=== PATIENT | female | born 1960 | race Two or more races ===

== ENCOUNTER 2019-09-15 04:29 | Inpatient (IN) | payer BC, OTHER ==
[~2019-09-15] VITALS: Ht 162.6 cm; Wt 93.0 kg
[2019-09-15] MEDS ORDERED: AZITHROMYCIN 500MG/ 250ML 250 ML IV ONE (06:00)
[2019-09-15] MEDS ORDERED: ENOXAPARIN SOD 80 MG/0.8ML SYRINGE SC ONE (06:00)
[2019-09-15 06:24] LABS: Basophils # (auto) 0 10 ^3/uL (0-0.2); Basophils % (auto) 0.2 % (0.0-2.0); Eosinophils # (auto) 0 10 ^3/uL (0-0.8); Eosinophils % (auto) 0.2 % (0.0-7.0); Hematocrit 44.4 % (36.0-46.0); Hemoglobin 14.7 g/dL (12.2-16.2); Lymphocytes # (auto) 0.9 10 ^3/uL (0.4-5.4); Lymphocytes % (auto) 19.8 % (10.0-50.0); Mean Corpuscular Hemoglobin 30.5 pg (28.0-32.0); Mean Corpuscular Hgb Conc. 33.1 g/dL (32.0-36.0); Mean Corpuscular Volume 92.3 fL (80.0-100.0); Monocytes # (auto) 0.3 10 ^3/uL (0-1.3); Monocytes % (auto) 7.7 % (0.0-12.0); Neutrophils # (auto) 3.2 10 ^3/uL (1.6-8.6); Neutrophils % (auto) 72.1 % (37.0-80.0); Nucleated Red Blood Cells % 0.3 %; Platelet Count (auto) 201 10^3/uL (140-450); Red Blood Cells 4.81 10^6/uL (4.0-5.20); Red Cell Distribution Width 15.1 % (11.8-14.3); White Blood Cell 4.5 10^3/uL (4.4-10.8)
[2019-09-15 06:35] LABS: INR 0.97 (0.9-1.15); Partial Thromboplastin Time 35.4 sec (23.64-32.05)
[2019-09-15 06:49] LABS: Chloride 98 mmol/L (98-107); Sodium 133 mmol/L (136-145)
[2019-09-15 07:15] LABS: Alanine Aminotransferase 21 U/L (13-56); Albumin 3.3 g/dL (3.4-5.0); Alkaline Phosphatase 120 U/L (45-117); Anion Gap 7 (5-15); Aspartate Aminotransferase 25 U/L (15-37); BUN/Creatinine Ratio 12.5; Bilirubin, Total 0.3 mg/dL (0.2-1.0); Blood Urea Nitrogen 8 mg/dL (7-18); Calcium 8.9 mg/dL (8.5-10.1); Carbon Dioxide 28 mmol/L (21-32); GFR African American 122 mL/min; GFR Non-African American 101 mL/min; Glucose 86 mg/dL (74-106); Magnesium 2.5 mg/dL (1.6-2.6); Total Protein 8.4 g/dL (6.4-8.2)
[2019-09-15] MEDS ORDERED: MORPHINE SULF INJ 2 MG/ML SYRINGE 1ML IV PRN ×2 (10:00→10:30)
[2019-09-15] MEDS ORDERED: NITROGLYCERIN 0.4 MG SL TAB SL PRN (10:00)
[2019-09-15] MEDS ORDERED: SODIUM CHLORIDE 0.9% 1,000 ML IV SCH (10:27)
[2019-09-15] MEDS ORDERED: ACETAMINOPHEN 500 MG TAB PO PRN ×2 (10:30)
[2019-09-15] MEDS ORDERED: ALBUTEROL SULF 2.5 MG/0.5ML(0.5%) NEB SOLN NEB PRN (10:30)
[2019-09-15] MEDS ORDERED: TEMAZEPAM 15 MG CAP PO PRN (10:30)
[2019-09-15] MEDS ORDERED: PROMETHAZINE HCL 25 MG/ML 1ML IV PRN (10:30)
[2019-09-15] MEDS ORDERED: BUDESONIDE (INHALATION) 0.5 MG/2 ML NEB NEB ONE (10:30)
[2019-09-15] MEDS ORDERED: traMADol HCL 50 MG TAB PO PRN (10:30)
[2019-09-15] MEDS: levoFLOXacin 500MG 100 ML IV SCH (10:57)
[2019-09-15] MEDS ORDERED: BENZ200C64 PO (12:26)
[2019-09-15] MEDS ORDERED: AZEL0.1S2 (12:26)
[2019-09-15] MEDS ORDERED: IPRA0.03 (12:26)
[2019-09-15 14:00] VITALS: BP 133/70
[2019-09-15] MEDS: CLINDAMYCIN 600MG IV 50 ML IV SCH ×2 (14:00→21:49)
[2019-09-15 14:18] VITALS: BP 133/70
[2019-09-15] MEDS: ALBUTEROL SULF HFA 90MCG INH 200DOSE IN SCH ×2 (14:56→22:00)
[2019-09-15 15:05] VITALS: BP 133/70
[2019-09-15 17:00] VITALS: BP 123/89
[2019-09-15 20:00] VITALS: BP 131/88
[2019-09-15] MEDS: ENOXAPARIN SOD 100 MG/1 ML SYRINGE SC SCH (21:49)
[2019-09-15] MEDS: DexAMETHasone SOD PHOS 4 MG/1ML SDV INJ IV SCH (21:49)
[2019-09-15 22:00] VITALS: BP 131/88
[2019-09-15] MEDS ORDERED: BUDESONIDE (INHALATION) 0.5 MG/2 ML NEB NEB SCH (22:00)
[2019-09-16 05:00] VITALS: BP 142/83
[2019-09-16] MEDS: ALBUTEROL SULF HFA 90MCG INH 200DOSE IN SCH ×2 (05:32→15:33)
[2019-09-16] MEDS: CLINDAMYCIN 600MG IV 50 ML IV SCH (05:32)
[2019-09-16 07:31] LABS: Albumin 2.9 g/dL (3.4-5.0); Calcium 9.1 mg/dL (8.5-10.1); Potassium 3.9 mmol/L (3.5-5.1)
[2019-09-16 07:33] LABS: BUN/Creatinine Ratio 16.7
[2019-09-16 07:36] LABS: Bilirubin, Total 0.2 mg/dL (0.2-1.0); Total Protein 7.6 g/dL (6.4-8.2)
[2019-09-16] MEDS: levoFLOXacin 500MG 100 ML IV SCH (08:32)
[2019-09-16] MEDS: DexAMETHasone SOD PHOS 4 MG/1ML SDV INJ IV SCH (08:32)
[2019-09-16] MEDS: ENOXAPARIN SOD 100 MG/1 ML SYRINGE SC SCH (08:33)
[2019-09-16 09:05] LABS: Hematocrit 42.3 % (36.0-46.0); Mean Corpuscular Hemoglobin 30.4 pg (28.0-32.0); Mean Corpuscular Hgb Conc. 33.1 g/dL (32.0-36.0); Mean Corpuscular Volume 91.8 fL (80.0-100.0); Platelet Count (auto) 244 10^3/uL (140-450); Red Blood Cells 4.61 10^6/uL (4.0-5.20); Red Cell Distribution Width 15.4 % (11.8-14.3)
[2019-09-16 09:08] LABS: White Blood Cell 1.4 10^3/uL (4.4-10.8)
[2019-09-16 09:10] LABS: Band Neutrophils % (manual) 0; Basophils % (manual) 0 (0.0-2.0); Blast Cells 0; Eosinophils % (manual) 0 (0-7); Metamyelocytes % 0; Myelocytes % 0; Promyelocytes % 0
[2019-09-16 09:28] VITALS: BP 128/62
[2019-09-16 09:30] LABS: Lymphocytes % (manual) 18 (10.0-50.0); Monocytes % (manual) 5 (0-12); Reactive Lymphocytes 1
[2019-09-16] MEDS ORDERED: CHOLECALCIFEROL (VITD3) 1,000IU=25mCg TAB PO SCH (10:00)
[2019-09-16] MEDS ORDERED: ZINC SULFATE 220mg CAP or TAB PO SCH (10:00)
[2019-09-16] MEDS ORDERED: ASCORBIC ACID 1,000 MG TAB PO SCH (10:00)
[2019-09-16] MEDS ORDERED: IOHEXOL 350 MG/ML 100ML IJ ONE (12:45)
[2019-09-16 13:30] VITALS: BP 131/76
[2019-09-16] MEDS ORDERED: diphenhdrAMINE HCL 50 MG/1 ML VL IV ONE (13:30)
[2019-09-16] MEDS ORDERED: ACETAMINOPHEN 500 MG TAB PO PRN (13:45)
[2019-09-16] MEDS ORDERED: FILGRASTIM (TBO) 300 MCG/0.5 ML SYRG SC ONE ×2 (15:00→15:30)
[2019-09-16 16:30] VITALS: BP 136/83
[2019-09-16] MEDS ORDERED: ASCO10003 PO (16:32)
[2019-09-16] MEDS ORDERED: CHOL1000 PO (16:32)
[2019-09-16] MEDS ORDERED: AZIT250T9 PO (16:32)
[2019-09-16] MEDS ORDERED: DEX4T PO (16:32)
[2019-09-16] MEDS ORDERED: ALBUAER3 IN (16:32)
[2019-09-16] MEDS ORDERED: ZINC220T6 PO (16:32)
[2019-09-17] MEDS ORDERED: AZITHROMYCIN 250 MG TAB PO SCH (10:00)
[2019-09-17] MEDS ORDERED: ENOXAPARIN SOD 40 MG/0.4 ML SYRINGE SC SCH (10:00)
== END 2019-09-16 17:45 | disposition home or self-care (01) | DRG 177 ==
LOC: ER 04:29 → TELE 04:30 → TELE-E-ADS 14:03
PROVIDERS: ADMIT Internal Medicine; ATTEND Internal Medicine
DX: U07.1 COVID-19 (principal); J12.89 Other viral pneumonia; E87.1 Hypo-osmolality and hyponatremia; D70.9 Neutropenia, unspecified; Z90.49 Acquired absence of other specified parts of digestive tract
CPT/HCPCS: 36415; 36600; 71045; 71275; 80053; 82728; 82805; 83735; 83880; 84484; 85007; 85025; 85027; 85379; 85610; 85730; 86141; 87040; 87070; 87804; 87880; 93005; 93970; 94640; 96365; 96366; 96372; G0378; J1100; J1447; J1956; J3490

== ENCOUNTER 2019-09-23 19:30 | Inpatient (IN) | payer BC ==
[~2019-09-23] VITALS: Ht 162.6 cm; Wt 97.0 kg
[~2019-09-23 19:30] MED LIST: ALBUAER3 IN; ASCO10003 PO; AZEL0.1S2; AZIT250T9 PO; BENZ200C64 PO; CHOL1000 PO; DEX4T PO; IPRA0.03; ZINC220T6 PO
[2019-09-23 21:14] LABS: Basophils # (auto) 0 10 ^3/uL (0-0.2); Basophils % (auto) 0.3 % (0.0-2.0); Eosinophils # (auto) 0 10 ^3/uL (0-0.8); Hematocrit 38.7 % (36.0-46.0); Hemoglobin 12.7 g/dL (12.2-16.2); Lymphocytes # (auto) 1.1 10 ^3/uL (0.4-5.4); Lymphocytes % (auto) 15.2 % (10.0-50.0); Mean Corpuscular Hemoglobin 30.1 pg (28.0-32.0); Mean Corpuscular Hgb Conc. 32.8 g/dL (32.0-36.0); Mean Corpuscular Volume 91.8 fL (80.0-100.0); Monocytes # (auto) 0.8 10 ^3/uL (0-1.3); Monocytes % (auto) 11.1 % (0.0-12.0); Neutrophils # (auto) 5.3 10 ^3/uL (1.6-8.6); Neutrophils % (auto) 73.4 % (37.0-80.0); Platelet Count (auto) 420 10^3/uL (140-450); Red Blood Cells 4.21 10^6/uL (4.0-5.20); Red Cell Distribution Width 15.4 % (11.8-14.3); White Blood Cell 7.2 10^3/uL (4.4-10.8)
[2019-09-23 21:20] LABS: Urine Bacteria NONE SEEN /hpf (None Seen); Urine Blood Negative /uL (Negative); Urine Mucus FEW (None Seen); Urine Specific Gravity 1.026 (1.001-1.035); Urine WBC 1 /hpf (0 - 5)
[2019-09-23 21:35] LABS: Albumin 2.9 g/dL (3.4-5.0); Calcium 7.5 mg/dL (8.5-10.1); Potassium 3.3 mmol/L (3.5-5.1)
[2019-09-23 21:38] LABS: Bilirubin, Total 0.4 mg/dL (0.2-1.0); Total Protein 6.2 g/dL (6.4-8.2)
[2019-09-23 21:45] LABS: Lactic Acid w/Reflex 2.4 mmol/L (0.4-2.0)
[2019-09-23] MEDS ORDERED: VANCOMYCIN 1GM/250ML 250 ML IV ONE (23:15)
[2019-09-23] MEDS ORDERED: SODIUM CHLORIDE 0.9% 2,700 ML IV ONE (23:15)
[2019-09-23] MEDS ORDERED: PIPERACILLIN-TAZOB 3.375GM 100 ML IV ONE (23:15)
[2019-09-24] MEDS ORDERED: MORPHINE SULFATE 4 MG/ML SYR/VIAL IV ONE (03:00)
[2019-09-24] MEDS ORDERED: ONDANSETRON HCL 4 MG/2 ML VIAL IV ONE (03:00)
[2019-09-24] MEDS: SODIUM CHLORIDE 0.9% 1,000 ML IV SCH (07:42)
[2019-09-24] MEDS ORDERED: DOCUSATE SOD 100 MG CAP PO PRN (07:45)
[2019-09-24] MEDS ORDERED: NITROGLYCERIN 0.4 MG SL TAB SL PRN (07:45)
[2019-09-24] MEDS ORDERED: LORazepam 0.5 MG TAB PO PRN (07:45)
[2019-09-24] MEDS ORDERED: ACETAMINOPHEN 500 MG TAB PO PRN (07:45)
[2019-09-24] MEDS ORDERED: IOHEXOL 300 MG/ML 100ML BOTTLE IJ ONE (08:10)
[2019-09-24] MEDS: CHOLECALCIFEROL (VITD3) 1,000UNIT=25mCg TAB PO SCH (08:21)
[2019-09-24] MEDS: DOXYCYCLINE 100 MG TAB/CAP PO SCH ×2 (08:21→21:51)
[2019-09-24] MEDS: ENOXAPARIN SOD 40 MG/0.4 ML SYRINGE SC SCH (08:21)
[2019-09-24 08:31] LABS: Basophils # (auto) 0.1 10 ^3/uL (0-0.2); Basophils % (auto) 0.9 % (0.0-2.0); Eosinophils # (auto) 0 10 ^3/uL (0-0.8); Eosinophils % (auto) 0.6 % (0.0-7.0); Hematocrit 38.3 % (36.0-46.0); Hemoglobin 12.3 g/dL (12.2-16.2); Lymphocytes % (auto) 28.7 % (10.0-50.0); Mean Corpuscular Hemoglobin 30.2 pg (28.0-32.0); Mean Corpuscular Hgb Conc. 32.1 g/dL (32.0-36.0); Monocytes # (auto) 0.6 10 ^3/uL (0-1.3); Neutrophils # (auto) 4.3 10 ^3/uL (1.6-8.6); Neutrophils % (auto) 60.8 % (37.0-80.0); Nucleated Red Blood Cells % 0.1 %; Platelet Count (auto) 373 10^3/uL (140-450); Red Blood Cells 4.08 10^6/uL (4.0-5.20); Red Cell Distribution Width 15.9 % (11.8-14.3)
[2019-09-24 08:46] LABS: BUN/Creatinine Ratio 30.6; Calcium 7.8 mg/dL (8.5-10.1); Potassium 3.7 mmol/L (3.5-5.1)
[2019-09-24] MEDS: MORPHINE SULF INJ 2 MG/ML SYRINGE 1ML IV PRN ×2 (09:41→16:15)
[2019-09-24 09:55] VITALS: BP 133/77
[2019-09-24] MEDS ORDERED: ZINC SULFATE 220mg CAP or TAB PO SCH (10:00)
[2019-09-24] MEDS ORDERED: ASCORBIC ACID 1,000 MG TAB PO SCH (10:00)
--- NOTE | 2019-09-24 10:05 | NUR ---
MS admit from [facility] admitted to tele/MS after SBAR received. Patient oriented to RUDDY RAMOS, RN primary RN, unit, room, bed, and unit policies regarding patient care and visiting hours. Patient weighed by bedscale and encouraged to call if they need something. All questions and concerns addressed, patient verbalized understanding. Note:
[2019-09-24 10:28] VITALS: BP 131/77
[2019-09-24 10:40] VITALS: BP 131/77
[2019-09-24] MEDS: HYDROcodone-ACET 5/325MG TAB PO PRN ×2 (12:29→20:47)
[2019-09-24 13:00] VITALS: BP 118/67
[2019-09-24] MEDS: ALBUTEROL SULF HFA 90MCG INH 200DOSE IN SCH ×2 (13:47→22:00)
--- NOTE | 2019-09-24 13:47 | NUR ---
Respiratory note: MDI ADMINISTERED BY RT. TOLERATED WELL. HR 73, RR 18, SPO2 97% ON RA, BS CLEAR AND DIMINISHED.
[2019-09-24 17:00] VITALS: BP 110/58
--- NOTE | 2019-09-24 19:00 | NUR ---
CALLED CHARGE TO INFORM PATIENT IS NEGATIVE FOR CORONAVIRUS.
--- NOTE | 2019-09-24 19:36 | NUR ---
REPORT GIVEN TO YURY MIR.
--- NOTE | 2019-09-24 20:00 | NUR ---
Patient Transferred to Room 220A From Covid-19 Unit Patient transferred to room 220A from covid-19 unit due to covid-19 test resulting negative. Patient transferred with all personal belongings via wheelchair. No sign/symptoms of distress noted upon transfer.
--- NOTE | 2019-09-24 20:05 | NUR ---
Opening Shift Note Received report from Nicholas COTTON. Assumed care of patient, awake and alert. No S/S of distress/SOB or pain. Instructed on POC and to call for assist PRN, will continue to monitor for changes Q1hr and PRN.
[2019-09-24 22:00] VITALS: BP 136/73
[2019-09-25] MEDS: SODIUM CHLORIDE 0.9% 1,000 ML IV SCH ×2 (00:30→17:19)
[2019-09-25 05:00] VITALS: BP_SYST 133; BP_SYST 137; BP_DIAS 101; BP_DIAS 75
[2019-09-25] MEDS: MORPHINE SULF INJ 2 MG/ML SYRINGE 1ML IV PRN ×2 (05:05→09:18)
[2019-09-25] MEDS: ONDANSETRON HCL 4 MG/2 ML VIAL IV PRN ×3 (05:45→17:19)
[2019-09-25 06:09] LABS: Basophils # (auto) 0 10 ^3/uL (0-0.2); Basophils % (auto) 0.5 % (0.0-2.0); Eosinophils # (auto) 0.1 10 ^3/uL (0-0.8); Hematocrit 41.6 % (36.0-46.0); Hemoglobin 13.6 g/dL (12.2-16.2); Lymphocytes # (auto) 1.9 10 ^3/uL (0.4-5.4); Lymphocytes % (auto) 37.8 % (10.0-50.0); Mean Corpuscular Hemoglobin 30.5 pg (28.0-32.0); Mean Corpuscular Hgb Conc. 32.6 g/dL (32.0-36.0); Mean Corpuscular Volume 93.5 fL (80.0-100.0); Monocytes # (auto) 0.4 10 ^3/uL (0-1.3); Monocytes % (auto) 7.4 % (0.0-12.0); Neutrophils # (auto) 2.7 10 ^3/uL (1.6-8.6); Neutrophils % (auto) 53.3 % (37.0-80.0); Nucleated Red Blood Cells % 0.2 %; Platelet Count (auto) 417 10^3/uL (140-450); Red Blood Cells 4.45 10^6/uL (4.0-5.20); Red Cell Distribution Width 16.4 % (11.8-14.3); White Blood Cell 5.1 10^3/uL (4.4-10.8)
[2019-09-25 06:27] LABS: Calcium 8.7 mg/dL (8.5-10.1); Potassium 3.8 mmol/L (3.5-5.1)
[2019-09-25] MEDS: HYDROcodone-ACET 5/325MG TAB PO PRN (06:27)
[2019-09-25 06:32] LABS: Bilirubin, Total 0.4 mg/dL (0.2-1.0); Total Protein 6.8 g/dL (6.4-8.2)
--- NOTE | 2019-09-25 07:23 | NUR ---
OPENING SHIFT NOTE Assumed care of patient from shift manager RN. Patient is alert and oriented x4, patient complaining of abdominal pain 4/10, patient has been medicated as ordered by shift manager. Patient was offered hot packs and repositioning. No other signs of distress noted. She was updated on the plan of care and verbalized understanding. Bed is locked, in the lowest position, side rails up x2 and call light is in reach. She was encouraged to call for assistance as needed.
[2019-09-25 08:00] VITALS: BP 128/73
--- NOTE | 2019-09-25 08:51 | NUR ---
GIOVANI AT BEDSIDE Updated on the patient status, wounds assessed. Plan of care discussed with the patient. Per MD patient will be scheduled for a skin graft on the left lateral khalil. No new orders received. Addendum: 09/25/19 at 0921 by BRIAN MONTOYA RN wrong patient.
[2019-09-25] MEDS: CHOLECALCIFEROL (VITD3) 1,000UNIT=25mCg TAB PO SCH (09:17)
[2019-09-25] MEDS: DOXYCYCLINE 100 MG TAB/CAP PO SCH (09:17)
[2019-09-25] MEDS: ENOXAPARIN SOD 40 MG/0.4 ML SYRINGE SC SCH (09:18)
--- NOTE | 2019-09-25 10:24 | NUR ---
Joie ESCOBAR PAGED Regarding patient abdominal pain 12/16 after administration of ordered pain medication. Message left, awaiting call back.
--- NOTE | 2019-09-25 10:41 | NUR ---
CALL FROM Sabrina ESCOBAR He was updated on the patient status and abdominal pain. Plan of care was discussed and this RN verbalized understanding. New orders will be input by .
[2019-09-25] MEDS ORDERED: CALCIUM CARB 500 MG CHEW TAB PO ONE (10:45)
[2019-09-25] MEDS ORDERED: MORPHINE SULF INJ 2 MG/ML SYRINGE 1ML IV PRN (10:45)
[2019-09-25] MEDS ORDERED: PANTOPRAZOLE 40 MG TAB PO ONE (10:45)
[2019-09-25] MEDS ORDERED: HYDROcodone-ACET 5/325MG TAB PO PRN (10:45)
[2019-09-25 12:00] VITALS: BP 126/78
[2019-09-25 17:00] VITALS: BP 145/86
[2019-09-25] MEDS ORDERED: PANT40T PO (20:00)
[2019-09-25] MEDS ORDERED: DOX100T PO (20:00)
[2019-09-25 21:08] VITALS: BP 125/72
--- NOTE | 2019-09-25 22:08 | NUR ---
Discharge instructions given as ordered. Encourage to follow up with PMD as instructed. All questions and concerns addressed. Patient verbalized understanding. Medication reconciliation form completed and copy given to patient. IV removed with catheter intact, pressure dressing applied. Telemetry unit returned to ICU. Patient taken to vehicle via wheelchair with all personal belongings, accompanied by staff. No distress noted at time of departure.
[2019-09-26] MEDS ORDERED: PANTOPRAZOLE 40 MG TAB PO SCH (10:00)
== END 2019-09-25 22:10 | disposition home or self-care (01) | DRG 871 ==
LOC: EDBD 19:30 → ER 19:30 → TELE-E-ADS 19:31 → TELE-CENTR 09-24 20:05
PROVIDERS: ADMIT Hospitalist; ATTEND Hospitalist
DX: A41.9 Sepsis, unspecified organism (principal); J18.9 Pneumonia, unspecified organism; J98.11 Atelectasis; E87.6 Hypokalemia; K57.30 Diverticulosis of large intestine without perforation or abscess without bleeding; N28.1 Cyst of kidney, acquired; R16.0 Hepatomegaly, not elsewhere classified; K52.9 Noninfective gastroenteritis and colitis, unspecified; Z90.49 Acquired absence of other specified parts of digestive tract; Z03.818 Encounter for observation for suspected exposure to other biological agents ruled out
CPT/HCPCS: 36415; 71045; 74176; 80048; 80053; 81001; 82150; 83605; 83690; 83735; 83880; 85025; 87040; 87081; 93005; 94640; 96361; 96365; 96366; 96367; 96375; G0378; J2405; J2543

== ENCOUNTER 2024-01-30 19:00 | Emergency (ER) | payer BC ==
[~2024-01-30] VITALS: Ht 162.6 cm; Wt 86.3 kg
[~2024-01-30 19:00] MED LIST changes: -ASCO10003 PO; -AZEL0.1S2; -AZIT250T9 PO; -CHOL1000 PO; -DEX4T PO; +DOX100T PO; +PANT40T PO; -ZINC220T6 PO; +[UNRECOGNIZED DRUG - CODE]
[2024-01-30 19:08] VITALS: BP 161/85; PULSE 71; RESP 19; O2SAT 100
[2024-01-30] MEDS ORDERED: SODIUM CHLORIDE 0.9% 1,000 ML IVB ONE (19:15)
[2024-01-30] MEDS ORDERED: MORPHINE SULFATE 4 MG/ML SYR/VIAL IV ONE (19:15)
[2024-01-30] MEDS ORDERED: ONDANSETRON HCL 4 MG/2 ML VIAL IV ONE (19:15)
--- NOTE | 2024-01-30 19:24 | ED.PDOC ---
GI ASSESSMENT HPI Comments 63-year-old female who came to ER via EMS for abdominal pain. Patient does have history of cholecystectomy and gastric bypass. States shortly after having dinner, she started having cramping, constant, right upper quadrant pain, radiating to the back associated with nausea. Denies any vomiting or changes in bowel habits. Patient was given Zofran by paramedics while EN route to the ER. Chief Complaint: Abdominal pain Time Seen by MD: 19:23 Primary Care Provider: GERMAIN Reviewed Notes: Nurses Notes Allergies: Coded Allergies: NO KNOWN ALLERGIES (Unverified , 11/30/14) Home Meds Active Scripts Pantoprazole Sodium Sesquihydr (Pantoprazole Sodium) 40 Mg Tab, 40 MG PO DAILY, #30 TAB Prov:NANCY ESCOBAR MD 09/25/19 Doxycycline Monohydrate (Doxycycline Monohydrate) 100 Mg Tab, 100 MG PO BID, #20 TAB Prov:NANCY ESCOBAR MD 09/25/19 Albuterol Sulfate (VENTOLIN MDI) 90 Mcg Ih, 90 MCG IN TID, #1 INH 1 Refill Prov:NANCY ESCOBAR MD 09/16/19 Benzonatate (Benzonatate) 200 Mg Cap, 1 CAP PO TIDP PRN for FOR COUGH for 10 Days, #30 CAP Prov:Doyle09/15/19 Azelastine HCl (Azelastine Hydrochloride) 0.1 % Spr, 0.1 % NA BID for 30 Days, #30 SPR Prov:09/15/19 Ipratropium [place] (Ipratropium [place]) 0.03 % Spr, 0.03 % NA UD for 30 Days, #30 SPRAY Prov:Doyle09/15/19 Information Source: Patient Mode of Arrival: EMS Timing: Hours Duration: Since onset Prehospital treatment: None Quality: Aching, Cramping Vomitus: None Stool: Normal Severity: Moderate Recent: Possible spoiled food Recent Hx of: Abdominal Surgery Pain Location: RUQ Associated sign and symptoms: Nausea, Abdominal Pain Past Medical History PAST MEDICAL HISTORY: HTN, Denies Surgical History: Cholecystectomy, Surgical History (Other): Gastric bypass TANK SETTER History: No Pertinent TANK SETTER History Family History Family History: Reviewed,noncontributory to illness Social History Smoker: Non-Smoker Alcohol: Denies ETOH Use Drugs: Denies Drug Use Lives In: Home Constitutional: denies: chills, diaphoresis, fatigue, fever, malaise, sweats, weakness, others EENTM: denies: blurred vision, double vision, ear bleeding, ear discharge, ear drainage, ear pain, ear ringing, eye pain, eye redness, hearing loss, mouth pain, mouth swelling, nasal discharge, nose bleeding, nose congestion, nose pa in, photophobia, tearing, throat pain, throat swelling, voice changes, others Respiratory: denies: cough, hemoptysis, orthopnea, SOB at rest, shortness of breath, SOB with excertion, stridor, wheezing, others Cardiovascular: denies: chest pain, dizzy spells, diaphoresis, Dyspnea on exertion, edema, irregular heart beat, left arm pain, lightheadedness, palpitations, PND, syncope, others Gastrointestinal: reports: abdominal pain, nausea; denies: abdomen distended, blood streaked bowels, constipated, diarrhea, dysphagia, difficulty swallowing, hematemesis, melena, poor appetite, poor fluid intake, rectal bleeding, rectal pain, vomiting, others Genitourinary: denies: abnormal vagina bleeding, burning, dyspareunia, dysuria, flank pain, frequency, hematuria, incontinence, pain, , vagina discharge, urgency, others Neurological: denies: dizziness, fainting, headache, left sided numbness, left sided weakness, numbness, paresthesia, pre-existing deficit, right sided numbness, right sided weakness, seizure, speech problems, tingling, tremors, weakness, others Musculoskeletal: denies: back pain, gout, joint pain, joint swelling, muscle pain, muscle stiffness, neck pain, others Integumetry: denies: bruises, change in color, change in hair/nails, dryness, laceration, lesions, lumps, rash, wounds, others Allergic/Immunocompromised: denies: Difficulty Healing, Frequent Infections, Hives, Itching, others Hematologic/Lymphatic: denies: anemia, blood clots, easy bleeding, easy bruising, swollen glands, others Endocrine: denies: excessive hunger, excessive sweating, excessive thirst, excessive urination, flushing, intolerance to cold, intolerance to heat, unexplained weight gain, unexplained weight loss, others Psychiatric: denies: anxiety, bipolar disorder, depression, hopeless, panic disorder, schizophrenia, sleepless, suicidal, others Physical Exam General Appearance: No Apparent Distress, Normal HEENT: Normal ENT Inspection, Pharynx Normal, TMs Normal Neck: Full Range of Motion, Non-Tender, Normal, Normal Inspection Respiratory: Chest Non-Tender, Lungs Clear, No Accessory Muscle Use, No Respiratory Distress, Normal Breath Sounds Cardiovascular: No Edema, No JVD, No Murmur, No Gallop, Normal Peripheral Pulses, Regular Rate/Rhythm Breast Exam: Deferred Gastrointestinal: No Organomegaly, Non Tender, No Pulsatile Mass, Normal Bowel Sounds, Soft Genitalia: Deferred Pelvic: Deferred Rectal: Deferred Extremities: No calf tenderness, Normal capillary refill, Normal inspection, Normal range of motion, Non-tender, No pedal edema Musculoskeletal : Apperance: Normal Neurologic: Alert, court bailiff II-XII nml as Tested, No Motor Deficits, Normal Affect, Normal Mood, No Sensory Deficits Cerebellar Function: Normal Reflexes: Normal Skin: Dry, Normal Color, Warm Lymphatic: No Adenopathy Was a procedure done? Was a procedure done?: No GI differential Dx Differential Diagnosis: Bowel Obstruction, Diverticular disease, Gastritis/PUD, Gastroenteritis, Electrolyte Imbalance, Food Poisoning X-Ray, Labs, Meds, VS Vital Signs Date Time Temp Pulse Resp B/P (MAP) Pulse Ox O2 Delivery O2 Flow Rate FiO2 01/30/24 19:08 98.4 71 19 161/85 (110) 100 Lab Test 01/30/24 19:33 01/30/24 19:15 Range/Units White Blood Count 7.0 4.4-10.8 10^3/uL Red Blood Count 4.46 4.0-5.20 10^6/uL Hemoglobin 12.4 12.2-16.2 g/dL Hematocrit 38.6 36.0-46.0 % Mean Corpuscular Volume 86.7 80.0-100.0 fL Mean Corpuscular Hemoglobin 27.9 L 28.0-32.0 pg Mean Corpuscular Hemoglobin Concent 32.2 32.0-36.0 g/dL Red Cell Distribution Width 16.8 H 11.8-14.3 % Platelet Count 306 140-450 10^3/uL Mean Platelet Volume 8.1 6.9-10.8 fL Neutrophils (%) (Auto) 79.5 37.0-80.0 % Lymphocytes (%) (Auto) 16.3 10.0-50.0 % Monocytes (%) (Auto) 3.6 0.0-12.0 % Eosinophils (%) (Auto) 0.4 0.0-7.0 % Basophils (%) (Auto) 0.2 0.0-2.0 % Neutrophils # (Auto) 5.5 1.6-8.6 10 ^3/uL Lymphocytes # (Auto) 1.1 0.4-5.4 10 ^3/uL Monocytes # (Auto) 0.3 0-1.3 10 ^3/uL Eosinophils # (Auto) 0 0-0.8 10 ^3/uL Basophils # (Auto) 0 0-0.2 10 ^3/uL Nucleated Red Blood Cells 0.1 % Prothrombin Time 10.5 9.3-11.8 sec Prothrombin Time INR 0.99 0.9-1.15 Activated Partial Thromboplast Time 27.3 24.5-34.5 SEC Sodium Level 141 136-145 mmol/L Potassium Level 3.6 3.5-5.1 mmol/L Chloride Level 109 H 98-107 mmol/L Carbon Dioxide Level 22 20-31 mmol/L Anion Gap 10 5-15 Blood Urea Nitrogen 15 9-23 mg/dL Creatinine 0.60 0.550-1.02 mg/dL Glomerular Filtration Rate Calc 101 >90 mL/min BUN/Creatinine Ratio 25.0 H 10.0-20.0 Serum Glucose 139 H 74-106 mg/dL Calcium Level 9.5 8.7-10.4 mg/dL Total Bilirubin 0.5 0.2-1.0 mg/dL Aspartate Amino Transferase (AST) 13 13-40 U/L Alanine Aminotransferase (ALT) 13 7-40 U/L Alkaline Phosphatase 103 46-116 U/L Total Protein 7.3 5.7-8.2 g/dL Albumin 4.7 3.2-4.8 g/dL Lipase 49 12-53 U/L Urine Color Light-yellow Yellow Urine Clarity Clear Clear Urine pH 6.5 5.0-9.0 Urine Specific [place] 1.026 1.001-1.035 Urine Protein Negative Negative Urine Ketones 3+ H Negative Urine Blood Trace H Negative /uL Urine Nitrite Negative Negative Urine Bilirubin Negative Negative Urine Urobilinogen Normal Negative mg/dL Urine Leukocyte Esterase Negative Negative /uL Urine RBC 1 0 - 4 /hpf Urine WBC 1 0 - 5 /hpf Urine Squamous Epithelial Cells Few <5 /hpf Urine Bacteria None seen None Seen /hpf Urine Glucose Normal Normal mg/dL Time of 1ST Reevaluation: 19:20 Reevaluation 1ST: Unchanged Time of 2ND Reevaluation: 04:32 (Patient eloped) Patient Education/Counseling: Diagnosis, Treatment Family Education/Counseling: No Family Present Departure 1 Departure Time of Disposition: 04:32 Impression: Primary Impression: Altered awareness, transient Additional Impression: Syncope and collapse Disposition: 01 HOME / SELF CARE / HOMELESS Condition: Stable Discharged With: Self Critical Care Note Critical Care Time?: No Stability Stability form required: No Heart Score Heart Score: Heart Score Response (Comments) Value History N/A 0 EKG N/A 0 Age N/A 0 Risk Factors N/A 0 Troponin N/A 0 Total 0 I personally scribed for SUELLEN SOLARES MD ([email or web address]) on 01/30/24 at 19:24. Electronically submitted by Josh Awad ([email or web address]). SUELLEN SOLARES MD Jan 30, 2024 19:24
[2024-01-30 19:43] LABS: Urine Bacteria None Seen /hpf (None Seen)
[2024-01-30 19:48] LABS: Basophils # (auto) 0 10 ^3/uL (0-0.2); Basophils % (auto) 0.2 % (0.0-2.0); Eosinophils # (auto) 0 10 ^3/uL (0-0.8); Eosinophils % (auto) 0.4 % (0.0-7.0); Hematocrit 38.6 % (36.0-46.0); Hemoglobin 12.4 g/dL (12.2-16.2); Lymphocytes # (auto) 1.1 10 ^3/uL (0.4-5.4); Lymphocytes % (auto) 16.3 % (10.0-50.0); Mean Corpuscular Hemoglobin 27.9 pg (28.0-32.0); Mean Corpuscular Hgb Conc. 32.2 g/dL (32.0-36.0); Mean Corpuscular Volume 86.7 fL (80.0-100.0); Monocytes # (auto) 0.3 10 ^3/uL (0-1.3); Monocytes % (auto) 3.6 % (0.0-12.0); Neutrophils # (auto) 5.5 10 ^3/uL (1.6-8.6); Neutrophils % (auto) 79.5 % (37.0-80.0); Nucleated Red Blood Cells % 0.1 %; Platelet Count (auto) 306 10^3/uL (140-450); Red Blood Cells 4.46 10^6/uL (4.0-5.20); Red Cell Distribution Width 16.8 % (11.8-14.3)
[2024-01-30 19:50] LABS: Urine Blood TRACE /uL (Negative); Urine Clarity Clear (Clear); Urine Color Light-Yellow (Yellow); Urine Protein, UAD Negative (Negative); Urine Specific Gravity 1.026 (1.001-1.035); Urine Urobilinogen Normal (Negative); Urine WBC 1 /hpf (0 - 5); Urine pH 6.5 (5.0-9.0)
[2024-01-30 20:00] LABS: INR 0.99 (0.9-1.15); Partial Thromboplastin Time 27.3 SEC (24.5-34.5); Prothrombin Time 10.5 sec (9.3-11.8)
[2024-01-30 20:05] LABS: Alanine Aminotransferase 13 U/L (7-40); Albumin 4.7 g/dL (3.2-4.8); Alkaline Phosphatase 103 U/L (46-116); Anion Gap 10 (5-15); Aspartate Aminotransferase 13 U/L (13-40); Blood Urea Nitrogen 15 mg/dL (9-23); Calcium 9.5 mg/dL (8.7-10.4); Carbon Dioxide 22 mmol/L (20-31); Chloride 109 mmol/L (98-107); Glucose 139 mg/dL (74-106); Lipase 49 U/L (12-53); Potassium 3.6 mmol/L (3.5-5.1); Sodium 141 mmol/L (136-145)
[2024-01-30 20:06] LABS: Bilirubin, Total 0.5 mg/dL (0.2-1.0); Total Protein 7.3 g/dL (5.7-8.2)
== END 2024-01-31 04:29 | disposition home or self-care (01) ==
LOC: ER 19:00 → EDBD 19:00 → ER 23:37
DX: R55 Syncope and collapse (principal); R40.4 Transient alteration of awareness; R10.11 Right upper quadrant pain; I10 Essential (primary) hypertension; Z98.84 Bariatric surgery status; Z98.890 Other specified postprocedural states; Z90.49 Acquired absence of other specified parts of digestive tract; Z79.899 Other long term (current) drug therapy
CPT/HCPCS: 36415; 80053; 81001; 83690; 85025; 85610; 85730

== ENCOUNTER 2024-04-19 08:03 | Emergency (ER) | payer BC, OTHER ==
[~2024-04-19] VITALS: Ht 162.6 cm; Wt 81.3 kg
--- NOTE | 2024-04-19 08:20 | ECG ---
[facility] [place] Test Date: 2024-04-19 Test Time: 08:10:43 Pat Name: PATY FARIA Department: ER Room: Gender: F Conveyor Attendant: LITTLE : 1960 Requested By: SHAYY BARRAGAN Order Number: [id number] Reading MD: Measurements Intervals [place] Rate: 76 P: 68 MA: 245 QRS: 60 QRSD: 94 T: 71 QT: 382 QTc: 430 Interpretive Statements Sinus rhythm Prolonged MA interval S1,S2,S3 pattern Anteroseptal infarct, age indeterminate Please click the below link to view image of tracing.
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
--- NOTE | 2024-04-19 08:43 | DVH ---
EXAM: CT HEAD WITHOUT CONTRAST INDICATION: syncope TECHNIQUE: CT of the head without intravenous contrast. Coronal and sagittal reformatted images are submitted. Radiation Dose : 1. Head: CT Dose: CTDI volume is 60.7 mGy. Dose-length product is 1193.4 mGy*cm The dose indicators for CT are the volume Computed Tomography (CT) Dose Index (CTDIvol) and the Dose Length Product (DLP), and are measured in units of mGy and mGy-cm, respectively. These indicators are not patient dose, but values generated from the CT scanner acquisition factors. The report includes radiation exposure data for exposures received during this examination. All CT scans at this medical facility are performed using dose modulation techniques as appropriate to a performed exam including the following: Automated exposure control was utilized; adjustment of the MA and/or KV according to patient size; and use of iterative reconstruction technique. COMPARISON: None FINDINGS: There is no evidence of acute intracranial hemorrhage, extra-axial collection, mass effect, midline s hift, herniation or hydrocephalus. The ventricles, sulci and cisterns are age appropriate. The rodriguez-white differentiation is intact. The visualized paranasal sinuses and mastoid air cells are clear. No depressed calvarial fracture. There is forehead swelling and laceration. IMPRESSION: 1. No evidence of acute intracranial abnormality. 2. Forehead swelling and laceration.
--- NOTE | 2024-04-19 08:47 | DVH ---
EXAM: CT CERVICAL WITHOUT CONTRAST INDICATION: SYNCOPE EXAM DATE: 04/19/2024 08:26 AM COMPARISON: None TECHNIQUE: Multiple axial CT images of the cervical spine were obtained using bone algorithm. Sagitta l and coronal reformatting was done. Bone and soft tissue windows were reviewed. Radiation Dose Information: CT Dose: CTDI volume is 26.7 mGy. Dose-length product is 32.2 mGy*cm FINDINGS: The cervical alignment is intact. The curvature is maintained. No acute cervical spine fracture is id entified. The vertebral body heights are intact. No suspicious osseous lesions are identified. Multilevel intervertebral disc space narrowing of the cervical spine. No significant spinal stenosis. Multilevel neural foraminal stenosis. There is no prevertebral soft tissue swelling. Enlarged multinodular thyroid. Calcified nodule in the left lobe. Lung apices are clear. IMPRESSION: 1. No evidence of acute cervical spine fracture or traumatic malalignment. 2. Degenerative changes in the cervical spine. All CT scans at this medical facility are performed using dose modulation techniques as appropriate t o a performed exam including the following: Automated exposure control was utilized; adjustment of th e MA and/or KV according to patient size; and use of iterative reconstruction technique.
--- NOTE | 2024-04-19 08:59 | DVH ---
INDICATION: syncope COMPARISON: None TECHNIQUE: 3 views of the lumbar spine were obtained. FINDINGS: The lumbar vertebral alignment is normal. The intervertebral disc spaces are well-maintained. No significant facet arthropathy is noted. No acute fracture, vertebral compression deformity or aggressive osseous lesions. The paravertebral soft tissues are grossly unremarkable. IMPRESSION: No acute fracture.
--- NOTE | 2024-04-19 08:59 | DVH ---
CHEST RADIOGRAPH Indication: syncope Technique: Single frontal view of the chest was obtained Comparison: None FINDINGS: Lines and Tubes: None Lungs: No focal consolidation. Pleura: No effusion. No pneumothorax. Cardiomediastinal contours: Unremarkable Bones: No acute osseous abnormality. IMPRESSION: No acute cardiopulmonary disease.
[2024-04-19 09:25] VITALS: BP 140/76; PULSE 67; RESP 16; TEMP 98.3; O2SAT 98
== END 2024-04-19 09:44 | disposition home or self-care (01) ==
LOC: EDBD 08:03 → ER 08:03
DX: S00.83XA Contusion of other part of head, initial encounter (principal); R55 Syncope and collapse; I10 Essential (primary) hypertension; Z90.49 Acquired absence of other specified parts of digestive tract; Z79.899 Other long term (current) drug therapy; W22.8XXA Striking against or struck by other objects, initial encounter; Y93.89 Activity, other specified; Y92.89 Other specified places as the place of occurrence of the external cause; Y99.0 Civilian activity done for income or pay
CPT/HCPCS: 70450; 71045; 72100; 72125; 93005

== ENCOUNTER 2024-09-08 10:22 | Emergency (ER) | payer BC, OTHER ==
[~2024-09-08] VITALS: Ht 162.6 cm; Wt 82.0 kg
[2024-09-08] MEDS: SODIUM CHLORIDE 0.9% 1,000 ML IV ONE (10:56)
[2024-09-08] MEDS: ONDANSETRON HCL 4 MG/2 ML VIAL IV ONE ×2 (10:56→14:33)
[2024-09-08 11:08] VITALS: PULSE 78; RESP 18; O2SAT 100
--- NOTE | 2024-09-08 11:10 | ED.PDOC ---
GI ASSESSMENT HPI Comments HPI: 64 y/o F, BIBA, with PMhx of HTN presents to the ED for CC of abdominal pain. EMS reports, patient is coming from home where she c/o diffuse abdominal pain with associated nausea, but no vomiting, and yellow diarrhea onset, 0200 this morning (09/08/24). Patient relays, previous symptoms in the past [id number]. In route to the ED, patient received 100mics of Fentanyl and $mg of Zofran with no relief of symptoms. Patient complains of current 10/10 abdominal pain. Patient denies vomiting, melena, fever, or chills. No other symptoms or modifying factors present at this time. Initial Vitals BP: HR: RR: O2: Temp: Past Medical History: Chronic abdominal pain Past Surgical History: NECK CYST X2, GASTRIC BYPASS, C-S X2, endoscopy recently Social History: Denies ETOH, smoking, and drug use. Medications: Imodium Allergies: NKA HPI: Poor Historian. REVIEW OF SYSTEMS: CONSTITUTIONAL: Denies acute: fever, diaphoresis, chills, generalized weakness. HEAD: Denies acute: headache, photophobia Eyes: Denies acute: Double vision, vision loss, eye pain, eye discharge. EARS: Denies acute: tinnitus, hearing loss, ear discharge, ear pain, THROAT: Denies acute: sore throat, swelling, difficulty swallowing , pain with swallowing, change in voice. NECK: Denies acute: neck pain, neck swelling, stiff neck. HEART: Denies acute : chest pain, palpitations, LUNGS: Denies acute: SOB, wheezing, cough, hemoptysis ABDOMEN: Denies acute: Vomiting, diarrhea, melena , hematemesis, hematochezia SKIN: Denies acute: rash, redness, lesions, itchiness. EXTREMITIES: Denies acute: calf pain, numbness, tingling, weakness, denies pain in extremity. Denies acute: Low back pain. Neuro: Denies acute: focal neurological deficit, motor or sensory focal neurological deficit, tremors, seizure like activity, confusion, dizziness, change in mental status, loss of bowel or bladder function, cauda equina like symptoms. : Denies acute: dysuria, hematuria, flank pain, increase in urinary frequency. PSYCH: Denies acute: hallucination, suicidal ideation, homicidal ideation. FEMALE: Denies acute: abnormal vaginal bleeding, foul odor, unusual discharge. PHYSICAL EXAM: General: ----[id number]----acute distress, awake and alert. Head: normocephalic, atraumatic. Neck: supple, trachea is midline, no swelling. Throat: Normal phonation. Eyes:, no erythema, no purulent discharge, no proptosis, no icterus. Heart: regular rate, regular rhythm, no significant murmur appreciated. Lungs: no apparent respiratory distress, Able to speak in full sentences. No wheezing, no rhonchi, no crackles. No stridors Clear to auscultation bilaterally. Abdomen: non tender to palpation, non distended, soft, no guarding, no rebound, + bowel sounds. Neuro: Awake, Alert, oriented to name, self, situation, follows commands GCS=15. Speech is normal. Skin: no petechia, no purpura, no cyanosis, non-pale, not jaundice. Lower extremities: --no - Pitting edema no deformity, no focal swelling, no calf TTP. Makes eye contact. moves all four extremities. Face: no apparent facial droop. No CVA tenderness to percussion bilaterally. Ambulating in the ED independently. Ears: Normal appearing TM b/l, Stroke: finger to nose cerebellar testing is intact. No pronator drift. 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 No nystagmus. No nuchal rigidity, Kernig's sign, Brudzinski's sign, no meningeal signs. ED COURSE: DISCLAIMER: This medical document was created using an electronic medical record system with voice recognition software and computerized dictation system. Although this document has been carefully reviewed, there might still be some phonetic and typographical errors. Occasional wrong-word or "sound-alike" substitutions may have occurred due to the inherent limitations of voice recognition software. These areas are purely typographical due to imperfections of the software programs and do not reflect any compromise in the patient's medical care. Please read the chart carefully and recognize, using context, where these substitutions have occurred. Chief Complaint: Abdominal Pain Time Seen by MD: 10:15 Primary Care Provider: unknown Reviewed Notes: Nurses Notes, Attache Notes, Medications, Allergies Allergies: Coded Allergies: NO KNOWN ALLERGIES (Unverified , 11/30/14) Home Meds Active Scripts Pantoprazole Sodium Sesquihydr (Pantoprazole Sodium) 40 Mg Tab, 40 MG PO DAILY, #30 TAB Prov:NANCY ESCOBAR MD 09/25/19 Doxycycline Monohydrate (Doxycycline Monohydrate) 100 Mg Tab, 100 MG PO BID, #20 TAB Prov:NANCY ESCOBAR MD 09/25/19 Albuterol Sulfate (VENTOLIN MDI) 90 Mcg Ih, 90 MCG IN TID, #1 INH 1 Refill Prov:NANCY ESCOBAR MD 09/16/19 Benzonatate (Benzonatate) 200 Mg Cap, 1 CAP PO TIDP PRN for FOR COUGH for 10 Days, #30 CAP Prov:triston09/15/19 Azelastine HCl (Azelastine Hydrochloride) 0.1 % Spr, 0.1 % NA BID for 30 Days, #30 SPR Prov:09/15/19 Ipratropium [place] (Ipratropium [place]) 0.03 % Spr, 0.03 % NA UD for 30 Days, #30 SPRAY Prov:09/15/19 Information Source: Patient, Emergency Med Personnel Mode of Arrival: EMS Timing: Hours Duration: Since onset Prehospital treatment: None Quality: None Vomitus: Watery Stool: Watery Severity: Moderate Recent: None Recent Hx of: None Pain Location: Diffuse Modifying Factors: Nothing Associated sign and symptoms: Nausea, Vomiting, Diarrhea, Abdominal Pain GI differential Dx Differential Diagnosis: Gastritis/PUD, Gastroenteritis, Electrolyte Imbalance, Food Poisoning, Bacterial, Parasitic, Viral, Other (DDX include Diverticulitis, colitis, gastroenteritis, acute abdomen, SBO, enteritis, constipation, volvulus, appendicitis, Gallbladder disease, choledocolithiasis, ascending cholangitis, pancreatitis, intraAbdominal mass/neoplasm, hepatitis, UTI, pylonephritis, kidney stone, aneurysm, dissection, Inflammatory bowel disease, gastroparesis, ischemic bowel, ) X-Ray, Labs, Meds, VS Vital Signs Date Time Temp Pulse Resp B/P (MAP) Pulse Ox O2 Delivery O2 Flow Rate FiO2 09/08/24 18:11 98.6 80 21 121/97 (105) 97 98.6 09/08/24 17:00 76 11 175/90 (118) 98 09/08/24 16:00 71 13 165/88 (113) 98 09/08/24 15:00 76 15 150/73 (98) 99 09/08/24 14:40 84 16 154/94 (114) 98 09/08/24 14:37 154/94 09/08/24 13:22 75 09/08/24 13:21 90 14 162/89 (113) 99 09/08/24 12:00 77 13 159/76 (103) 98 09/08/24 11:15 97.9 89 20 136/88 (104) 98 97.9 09/08/24 11:08 78 18 100 Room Air* 0 21 09/08/24 10:45 97.9 70 16 152/91 (111) 100 97.9 09/08/24 10:24 72 Lab Test 09/08/24 14:57 09/08/24 13:00 09/08/24 12:47 09/08/24 12:24 Range/Units Troponin I High Sensitivity < 3 L < 3 L </=34 ng/L Stool Occult Blood Negative Negative Stool Occult Blood Sample #3 Negative Stool for White Cells None seen Urine Color Dark yellow Yellow Urine Clarity Ex.turbid Clear Urine pH 5.5 5.0-9.0 Urine Specific [place] 1.028 1.001-1.035 Urine Protein Trace H Negative Urine Ketones 2+ H Negative Urine Blood 2+ H Negative /uL Urine Nitrite Negative Negative Urine Bilirubin Negative Negative Urine Urobilinogen Normal Negative mg/dL Urine Leukocyte Esterase Negative Negative /uL Urine RBC 3 0 - 4 /hpf Urine Microscopic WBC 0-5 /HPF Urine Squamous Epithelial Cells None seen <5 /hpf Urine Calcium Oxalate Crystals Few None Seen Urine Amorphous Crystals Mod None Seen /hpf Urine Bacteria Few H None Seen /hpf Urine Glucose Normal Normal mg/dL Urine Opiates Screen Neg NEGATIVE Urine Fentanyl Screen Pos NEGATIVE Urine Barbiturates Screen Neg NEGATIVE Urine Phencyclidine Screen Neg NEGATIVE Urine Amphetamines Screen Neg NEGATIVE Urine Benzodiazepines Screen Neg NEGATIVE Urine Cocaine Screen Neg NEGATIVE Urine Cannabinoids Screen Pos NEGATIVE Test 09/08/24 11:10 Range/Units White Blood Count 8.5 4.4-10.8 10^3/uL Red Blood Count 4.79 4.0-5.20 10^6/uL Hemoglobin 13.0 12.2-16.2 g/dL Hematocrit 40.6 36.0-46.0 % Mean Corpuscular Volume 84.7 80.0-100.0 fL Mean Corpuscular Hemoglobin 27.1 L 28.0-32.0 pg Mean Corpuscular Hemoglobin Concent 32.0 32.0-36.0 g/dL Red Cell Distribution Width 16.5 H 11.8-14.3 % Platelet Count 293 140-450 10^3/uL Mean Platelet Volume 8.4 6.9-10.8 fL Neutrophils (%) (Auto) 85.9 H 37.0-80.0 % Lymphocytes (%) (Auto) 9.7 L 10.0-50.0 % Monocytes (%) (Auto) 4.2 0.0-12.0 % Eosinophils (%) (Auto) 0.1 0.0-7.0 % Basophils (%) (Auto) 0.1 0.0-2.0 % Neutrophils # (Auto) 7.3 1.6-8.6 10 ^3/uL Lymphocytes # (Auto) 0.8 0.4-5.4 10 ^3/uL Monocytes # (Auto) 0.4 0-1.3 10 ^3/uL Eosinophils # (Auto) 0 0-0.8 10 ^3/uL Basophils # (Auto) 0 0-0.2 10 ^3/uL Nucleated Red Blood Cells 0.1 % Sodium Level 139 136-145 mmol/L Potassium Level 3.2 L 3.5-5.1 mmol/L Chloride Level 105 98-107 mmol/L Carbon Dioxide Level 24 20-31 mmol/L Anion Gap 10 5-15 Blood Urea Nitrogen 16 9-23 mg/dL Creatinine 0.72 0.550-1.02 mg/dL Glomerular Filtration Rate Calc 93 >90 mL/min BUN/Creatinine Ratio 22.2 H 10.0-20.0 Serum Glucose 129 H 74-106 mg/dL Lactic Acid Level 1.7 0.4-2.0 mmol/L Calcium Level 9.2 8.7-10.4 mg/dL Total Bilirubin 0.6 0.2-1.0 mg/dL Aspartate Amino Transferase (AST) 16 13-40 U/L Alanine Aminotransferase (ALT) 11 7-40 U/L Alkaline Phosphatase 99 46-116 U/L Troponin I High Sensitivity < 3 L </=34 ng/L Total Protein 7.5 5.7-8.2 g/dL Albumin 4.7 3.2-4.8 g/dL Lipase 40 12-53 U/L Microbiology Date/Time Source Procedure Growth Status 09/08/24 12:47 Stool Stool Culture - Final Complete 09/08/24 12:47 Stool Shiga Toxin I & II - Final Complete 09/08/24 12:47 Stool Clostridium difficile Toxin Assay - Final Complete [place] [address] Ph: [phone] DIAGNOSTIC IMAGING Diagnostic Imaging Report : [id number] Signed PATIENT: PATY FARIA ACCT: [id number] UNIT: [id number] : 1960 LOC: ER ROOM / BED: / AGE / SEX: 64 / F ADM STATUS: REG ER SERVICE 1034 ORDERING PHYSICIAN: HUANG RAMOS DO PROCEDURE(s): ABPL - CT AB PEL WO CON-NO ORAL OR IV REASON: ABD PAIN NAUSEA ORDER NUMBER(s): [id number], ACCESSION NUMBER(s): [id number] Exam: CT CT AB PEL WO CON-NO ORAL OR IV History: ABD PAIN NAUSEA Comparison Study: CT ABD PELVIS WO CONTRAST on DOS: 09/24/19 Technique: Multidetector spiral CT of the abdomen and pelvis was performed from lung bases to pubic symphysis. Imaging was performed without IV contrast. Axial, coronal and sagittal multiplanar reformats were obtained from the axial data set by the technologist. Radiation dose : Abdomen/Pelvis: CTDIvol 18 mGy, DLP 1020 mGy*cm. Findings: Evaluation of solid organs is limited due to lack of intravenous contrast use. Lung Bases: No acute or significant lung base finding. Normal heart size. No pleural or pericardial effusion. Nodular densities in the bilateral breasts. Liver: The liver is normal in size. No focal lesions. Gallbladder and biliary Tree: Gallbladder is surgically absent. Spleen: Calcified granuloma. Pancreas: The pancreas is grossly normal in appearance. Adrenal Glands: Unremarkable Kidneys: Right renal cysts including a right parapelvic renal cyst. No hydronephrosis. Bladder: Grossly unremarkable for degree of distention. Bowel: Postsurgical changes in the stomach and bowel. Small bowel and colon are normal in caliber and distribution. Normal appendix is visualized in the right lower quadrant without findings of appendicitis. Fluid density in the colon. Ascites: Absent Lymphadenopathy: No mesenteric, retroperitoneal or periportal lymphadenopathy. Abdominal wall and Mesentery: Unremarkable. Vasculature: The visualized abdominal aorta is normal in size and caliber. Evaluation of abdominal and pelvic vessels is limited due to lack of intravenous contrast. Pelvic Organs: Unremarkable Musculoskeletal: Levoscoliosis with associated multilevel degenerative disease. IMPRESSION: 1. No acute abdominal or pelvic findings. Right renal cysts including a parapelvic renal cyst. Fluid density in the colon suggesting a diarrheal illness. Clinical correlation and continued follow-up is recommended. Nodularity in the bilateral breasts. Consider further evaluation with mammogram and ultrasound. Radiation optimization: All CT scans at this facility use at least one of these dose optimization techniques: Automated exposure control mA and/or kV adjustment per patient size (includes targeted exams where dose is matched to clinical indication) or iterative reconstruction. HS:Y ATED BY: DARIO CRUZ MD DICTATED DATE/TIME: 09/08/24 111 SIGNED BY: DARIO CRUZ MD SIGNED DATE/TIME: 09/08/241114 CC: Time of 1ST Reevaluation: 10:45 Reevaluation 1ST: Unchanged Time of 2ND Reevaluation: 16:15 (The case was discussed with the admitting team (HPI, physical exam, labs and diagnostic tests that were available at the time of disposition, ED course, treatment plan) on the phone. They agreed to evaluate the patient to and assume care of this patient from this point forward. --- Anibal . [facility]'s pt. ) Patient Education/Counseling: Diagnosis, Treatment Family Education/Counseling: No Family Present Comments Patient presented with the above HPI.---abdominal pain---workup was initiated. patient was found with the above mentioned diagnosis. the following medications were ordered: please refer to order lists of meds and tests obtained by myself Dr. Barb. Patient ED course and VS have been stabilized. Patient has been reassessed in the ED and remained in a stable condition. Pertinent incidental findings were discussed with the patient and/or family. Patient/family voices understanding and is agreeable with plan. Patient has been observed in the ED adequate length of time to insure improvement/stability. Escalation of care considered: Consideration of escalation to observation or admission Patient was ADMITTED to the medicine team for further evaluation and treatment of their presentation. All the reports of any imaging studies that were ordered by myself were reviewed by myself. Departure 1 Departure Time of Disposition: 11:32 Impression: Primary Impression: Chronic abdominal pain Additional Impressions: Diarrhea Hypokalemia Abnormal finding on CT scan Disposition: ADMITTED INPATIENT Admit to: Tele Condition: Guarded Additional Instructions: [place] [address] Ph: [phone] DIAGNOSTIC IMAGING Diagnostic Imaging Report : [id number] Signed PATIENT: PATY FARIA ACCT: [id number] UNIT: [id number] : 1960 LOC: ER ROOM / BED: / AGE / SEX: 64 / F ADM STATUS: REG ER SERVICE 1034 ORDERING PHYSICIAN: HUANG RAMOS DO PROCEDURE(s): ABPL - CT AB PEL WO CON-NO ORAL OR IV REASON: ABD PAIN NAUSEA ORDER NUMBER(s): [id number], ACCESSION NUMBER(s): [id number] Exam: CT CT AB PEL WO CON-NO ORAL OR IV History: ABD PAIN NAUSEA Comparison Study: CT ABD PELVIS WO CONTRAST on DOS: 09/24/19 Technique: Multidetector spiral CT of the abdomen and pelvis was performed fro m lung bases to pubic symphysis. Imaging was performed without IV contrast. Axial, coronal and sagittal multiplanar reformats were obtained from the axial data set by the technologist. Radiation dose : Abdomen/Pelvis: CTDIvol 18 mGy, DLP 1020 mGy*cm. Findings: Evaluation of solid organs is limited due to lack of intravenous contrast use. Lung Bases: No acute or significant lung base finding. Normal heart size. No pleural or pericardial effusion. Nodular densities in the bilateral breasts. Liver: The liver is normal in size. No focal lesions. Gallbladder and biliary Tree: Gallbladder is surgically absent. Spleen: Calcified granuloma. Pancreas: The pancreas is grossly normal in appearance. Adrenal Glands: Unremarkable Kidneys: Right renal cysts including a right parapelvic renal cyst. No hydronephrosis. Bladder: Grossly unremarkable for degree of distention. Bowel: Postsurgical changes in the stomach and bowel. Small bowel and colon are normal in caliber and distribution. Normal appendix is visualized in the right lower quadrant without findings of appendicitis. Fluid density in the colon. Ascites: Absent Lymphadenopathy: No mesenteric, retroperitoneal or periportal lymphadenopathy. Abdominal wall and Mesentery: Unremarkable. Vasculature: The visualized abdominal aorta is normal in size and caliber. Evaluation of abdominal and pelvic vessels is limited due to lack of intravenous contrast. Pelvic Organs: Unremarkable Musculoskeletal: Levoscoliosis with associated multilevel degenerative disease. IMPRESSION: 1. No acute abdominal or pelvic findings. Right renal cysts including a parapelvic renal cyst. Fluid density in the colon suggesting a diarrheal illness. Clinical correlation and continued follow-up is recommended. Nodularity in the bilateral breasts. Consider further evaluation with mammogram and ultrasound. Radiation optimization: All CT scans at this facility use at least one of these dose optimization techniques: Automated exposure control mA and/or kV adjustment per patient size (includes targeted exams where dose is matched to clinical indication) or iterative reconstruction. HS:Y ATED BY: DARIO CRUZ MD DICTATED DATE/TIME: 09/08/24 1115 SIGNED BY: DARIO CRUZ MD SIGNED DATE/TIME: 09/08/24 1115 CC: Discharged With: Self Critical Care Note Critical Care Time?: No Heart Score Heart Score: Heart Score Response (Comments) Value History N/A 0 EKG N/A 0 Age N/A 0 Risk Factors N/A 0 Troponin N/A 0 Total 0 I personally scribed for HUANG RAMOS DO ([email or web address]) on 09/08/24 at 11:10. Electronically submitted by Deepthi Gagnon ([email or web address]). I personally scribed for HUANG RAMOS DO ([email or web address]) on 09/08/24 at 11:26. Electronically submitted by Deepthi Gagnon ([email or web address]). I personally scribed for HUANG RAMOS DO ([email or web address]) on 09/08/24 at 11:35. Electronically submitted by Deepthi Gagnon ([email or web address]). HUANG RAMOS DO Sep 08, 2024 11:10
--- NOTE | 2024-09-08 11:17 | DVH ---
Exam: CT CT AB PEL WO CON-NO ORAL OR IV History: ABD PAIN NAUSEA Comparison Study: CT ABD PELVIS WO CONTRAST on DOS: 09/24/19 Technique: Multidetector spiral CT of the abdomen and pelvis was performed from lung bases to pubic symphysis. Imaging was performed without IV contrast. Axial, coronal and sagittal multiplanar reform ats were obtained from the axial data set by the technologist. Radiation dose : Abdomen/Pelvis: CTDIvol 18 mGy, DLP 1020 mGy*cm. Findings: Evaluation of solid organs is limited due to lack of intravenous contrast use. Lung Bases: No acute or significant lung base finding. Normal heart size. No pleural or pericardial effusion. Nodular densities in the bilateral breasts. Liver: The liver is normal in size. No focal lesions. Gallbladder and biliary Tree: Gallbladder is surgically absent. Spleen: Calcified granuloma. Pancreas: The pancreas is grossly normal in appearance. Adrenal Glands: Unremarkable Kidneys: Right renal cysts including a right parapelvic renal cyst. No hydronephrosis. Bladder: Grossly unremarkable for degree of distention. Bowel: Postsurgical changes in the stomach and bowel. Small bowel and colon are normal in caliber and distribution. Normal appendix is visualized in the right lower quadrant without findings of appendic itis. Fluid density in the colon. Ascites: Absent Lymphadenopathy: No mesenteric, retroperitoneal or periportal lymphadenopathy. Abdominal wall and Mesentery: Unremarkable. Vasculature: The visualized abdominal aorta is normal in size and caliber. Evaluation of abdominal a nd pelvic vessels is limited due to lack of intravenous contrast. Pelvic Organs: Unremarkable Musculoskeletal: Levoscoliosis with associated multilevel degenerative disease. IMPRESSION: 1. No acute abdominal or pelvic findings. Right renal cysts including a parapelvic renal cyst. Fluid density in the colon suggesting a diarrheal illness. Clinical correlation and continued follow-up is recommended. Nodularity in the bilateral breasts. Consider further evaluation with mammogram and ult rasound. Radiation optimization: All CT scans at this facility use at least one of these dose optimization rudy hniques: Automated exposure control mA and/or kV adjustment per patient size (includes targeted exams where dose is matched to clinical indication) or iterative reconstruction. HS:Y
[2024-09-08 11:40] LABS: Hematocrit 40.6 % (36.0-46.0); Hemoglobin 13.0 g/dL (12.2-16.2); Mean Corpuscular Hemoglobin 27.1 pg (28.0-32.0); Mean Corpuscular Volume 84.7 fL (80.0-100.0); Nucleated Red Blood Cells % 0.1 %
[2024-09-08 12:02] LABS: Alanine Aminotransferase 11 U/L (7-40); Alkaline Phosphatase 99 U/L (46-116); Anion Gap 10 (5-15); BUN/Creatinine Ratio 22.2 (10.0-20.0); Blood Urea Nitrogen 16 mg/dL (9-23); Calcium 9.2 mg/dL (8.7-10.4); Carbon Dioxide 24 mmol/L (20-31); Chloride 105 mmol/L (98-107); Lipase 40 U/L (12-53); Sodium 139 mmol/L (136-145); Total Protein 7.5 g/dL (5.7-8.2)
[2024-09-08 12:03] LABS: Albumin 4.7 g/dL (3.2-4.8); Bilirubin, Total 0.6 mg/dL (0.2-1.0)
[2024-09-08 12:07] LABS: Glucose 129 mg/dL (74-106); Potassium 3.2 mmol/L (3.5-5.1)
[2024-09-08] MEDS: LIDOCAINE VISCOUS 2% 15ML UD PO ONE (12:32)
[2024-09-08] MEDS: SUCRALFATE 1 GM TAB PO ONE (12:32)
[2024-09-08] MEDS: PANTOPRAZOLE 40 MG TAB PO ONE (12:32)
[2024-09-08] MEDS: HYDROcodone-ACET 5/325MG TAB PO ONE (12:33)
[2024-09-08] MEDS: CIPROFLOXACIN 400MG/200ML 200 ML IV ONE (13:13)
[2024-09-08] MEDS: POTASSIUM CHL 20 Meq TABLET PO ONE (13:13)
[2024-09-08 14:10] LABS: Urine Amorphous Crystal MOD /hpf (None Seen); Urine Protein, UAD TRACE (Negative)
[2024-09-08] MEDS: fentaNYL CITRATE 100 MCG/2 ML VL IV ONE (14:37)
--- NOTE | 2024-09-08 16:18 | DVHINCON2 ---
Date of service: Sep 08, [address] Day Reason for Consultation Abdominal Pain History of Present Illness Luis Enrique Leone is a 64 y.o. female who presents with severe sharp epigastric abdominal pain that started about 2 days prior to admission after she ate a cheese pizza. Patient states that she has chronic intermittent abdominal pain and has had an extensive work up for the abdominal pain including endoscopies without a specific cause. Foods were identified as triggers for the intermittent abdominal pain. This episode lasted longer than usual with her intermittent abdominal pain usually lasting no longer than 5 - 10 hours. Pain has been alleviated with pain medication. No major events reported overnight. Patient denies complaints of fevers, chills, chest pain, palpitations, cough, shortness of breath, nausea, vomiting, diarrhea, constipation, dysuria, lightheadedness, headaches, weakness, paresthesia or other complaints. Past Medical History As per HPI, otherwise GERD Past Surgical History Cholecystectomy Allergies: Coded Allergies: NO KNOWN ALLERGIES (Unverified , 11/30/14) Home Meds Active Scripts Pantoprazole Sodium Sesquihydr (Pantoprazole Sodium) 40 Mg Tab, 40 MG PO DAILY, #30 TAB Prov:NANCY ESCOBAR MD 09/25/19 Doxycycline Monohydrate (Doxycycline Monohydrate) 100 Mg Tab, 100 MG PO BID, #20 TAB Prov:NANCY ESCOBAR MD 09/25/19 Albuterol Sulfate (VENTOLIN MDI) 90 Mcg Ih, 90 MCG IN TID, #1 INH 1 Refill Prov:NANCY ESCOBAR MD 09/16/19 Benzonatate (Benzonatate) 200 Mg Cap, 1 CAP PO TIDP PRN for FOR COUGH for 10 Days, #30 CAP Prov:09/15/19 Azelastine HCl (Azelastine Hydrochloride) 0.1 % Spr, 0.1 % NA BID for 30 Days, #30 SPR Prov:09/15/19 Ipratropium [place] (Ipratropium [place]) 0.03 % Spr, 0.03 % NA UD for 30 Days, #30 SPRAY Prov:09/15/19 Vital Signs Vital Signs Date Time Temp Pulse Resp B/P (MAP) Pulse Ox O2 Delivery O2 Flow Rate FiO2 09/08/24 15:00 76 15 150/73 (98) 99 09/08/24 11:15 97.9 97.9 09/08/24 11:08 Room Air* 0 21 Physical Exam Reviewed with ER provider Labs/Diagnostic Data D Labs Test 09/08/24 14:57 09/08/24 12:47 09/08/24 12:24 09/08/24 11:10 Range/Units Troponin I High Sensitivity < 3 L </=34 ng/L Stool Occult Blood Negative Negative Stool Occult Blood Sample #3 Negative Stool for White Cells None seen Urine Color Dark yellow Yellow Urine Clarity Ex.turbid Clear Urine pH 5.5 5.0-9.0 Urine Specific [place] 1.028 1.001-1.035 Urine Protein Trace H Negative Urine Ketones 2+ H Negative Urine Blood 2+ H Negative /uL Urine Nitrite Negative Negative Urine Bilirubin Negative Negative Urine Urobilinogen Normal Negative mg/dL Urine Leukocyte Esterase Negative Negative /uL Urine RBC 3 0 - 4 /hpf Urine Microscopic WBC 0-5 /HPF Urine Squamous Epithelial Cells None seen <5 /hpf Urine Calcium Oxalate Crystals Few None Seen Urine Amorphous Crystals Mod None Seen /hpf Urine Bacteria Few H None Seen /hpf Urine Glucose Normal Normal mg/dL White Blood Count 8.5 4.4-10.8 10^3/uL Red Blood Count 4.79 4.0-5.20 10^6/uL Hemoglobin 13.0 12.2-16.2 g/dL Hematocrit 40.6 36.0-46.0 % Mean Corpuscular Volume 84.7 80.0-100.0 fL Mean Corpuscular Hemoglobin 27.1 L 28.0-32.0 pg Mean Corpuscular Hemoglobin Concent 32.0 32.0-36.0 g/dL Red Cell Distribution Width 16.5 H 11.8-14.3 % Platelet Count 293 140-450 10^3/uL Mean Platelet Volume 8.4 6.9-10.8 fL Neutrophils (%) (Auto) 85.9 H 37.0-80.0 % Lymphocytes (%) (Auto) 9.7 L 10.0-50.0 % Monocytes (%) (Auto) 4.2 0.0-12.0 % Eosinophils (%) (Auto) 0.1 0.0-7.0 % Basophils (%) (Auto) 0.1 0.0-2.0 % Neutrophils # (Auto) 7.3 1.6-8.6 10 ^3/uL Lymphocytes # (Auto) 0.8 0.4-5.4 10 ^3/uL Monocytes # (Auto) 0.4 0-1.3 10 ^3/uL Eosinophils # (Auto) 0 0-0.8 10 ^3/uL Basophils # (Auto) 0 0-0.2 10 ^3/uL Nucleated Red Blood Cells 0.1 % Sodium Level 139 136-145 mmol/L Potassium Level 3.2 L 3.5-5.1 mmol/L Chloride Level 105 98-107 mmol/L Carbon Dioxide Level 24 20-31 mmol/L Anion Gap 10 5-15 Blood Urea Nitrogen 16 9-23 mg/dL Creatinine 0.72 0.550-1.02 mg/dL Glomerular Filtration Rate Calc 93 >90 mL/min BUN/Creatinine Ratio 22.2 H 10.0-20.0 Serum Glucose 129 H 74-106 mg/dL Lactic Acid Level 1.7 0.4-2.0 mmol/L Calcium Level 9.2 8.7-10.4 mg/dL Total Bilirubin 0.6 0.2-1.0 mg/dL Aspartate Amino Transferase (AST) 16 13-40 U/L Alanine Aminotransferase (ALT) 11 7-40 U/L Alkaline Phosphatase 99 46-116 U/L Total Protein 7.5 5.7-8.2 g/dL Albumin 4.7 3.2-4.8 g/dL Lipase 40 12-53 U/L Microbiology Date/Time Source Procedure Growth Status 09/08/24 12:47 Stool Stool Culture - Preliminary Resulted 09/08/24 12:47 Stool Shiga Toxin I & II - Final Resulted 09/08/24 12:47 Stool Clostridium difficile Toxin Assay Pending Resulted CT abdomen and pelvis finding reviewed Plan/Recommendation This is a 64 y.o. female with listed past medical history who presents with abdominal pain admitted for further evaluation and management of chronic intermittent abdominal pain; unspecified. Patient would benefit from NPO status, IVF hydration and GI consultation. Patient requested to transfer to O designated facility as instructed by O case checker. Thank you for allowing me to participate in the care of your patient. Will coordinate transfer. Plan discussed with: Other JENNY ESCOBAR MD Sep 08, 2024 16:18
[2024-09-08 18:11] VITALS: BP 121/97; PULSE 80; RESP 21; TEMP 98.6; O2SAT 97
[2024-09-08 22:53] LABS: Cannabinoid Screen, Urine Pos (NEGATIVE)
[2024-09-08 22:54] LABS: Amphetamine Screen, Urine Neg (NEGATIVE); Barbiturate Scree,Urine Neg (NEGATIVE); Benzodiazephine Screen, Urine Neg (NEGATIVE); Cocaine Screen, Urine Neg (NEGATIVE); Opiate Scree,Urine Neg (NEGATIVE); Phencyclidine Screen, Urine Neg (NEGATIVE)
--- NOTE | 2024-09-12 10:55 | ECG ---
[facility] Test Date: 2024-09-08 Test Time: 10:24:36 Pat Name: PATY FARIA Department: ED Room: Gender: F Hydrology Technician: howard : 1960 Requested By: HUANG RAMOS Order Number: [id number] Reading MD: Measurements Intervals [place] Rate: 72 P: 17 MA: 170 QRS: -20 QRSD: 96 T: 26 QT: 404 QTc: 443 Interpretive Statements Sinus rhythm Borderline left axis deviation Borderline T abnormalities, anterior leads Please click the below link to view image of tracing.
== END 2024-09-08 18:40 | disposition short-term general hospital (02) ==
LOC: EDBD 10:22 → ER 10:22
DX: E87.6 Hypokalemia (principal); G89.29 Other chronic pain; R10.84 Generalized abdominal pain; R19.7 Diarrhea, unspecified; I10 Essential (primary) hypertension; Z90.49 Acquired absence of other specified parts of digestive tract; Z98.84 Bariatric surgery status; Z79.899 Other long term (current) drug therapy
CPT/HCPCS: 36415; 74176; 80053; 80307; 81001; 82270; 83605; 83690; 84484; 85025; 85048; 87045; 96361; 96365; 96375; 96376; 99285; J0744; J2405; J3010; J7030; 93005